=== PATIENT | female | born 1960 | race Caucasian/White ===

== ENCOUNTER 2020-12-09 06:25 | Day surgery (SDC) | payer BC ==
[2020-12-09] MEDS ORDERED: Dextrose 5%-Lactated Ringers 1,000 ML IV SCH (07:00)
[2020-12-09] MEDS ORDERED: Midazolam 1 MG/ML 2 ML SDV ONE (07:06)
[2020-12-09] MEDS ORDERED: fentaNYL 100 MCG/2 ML SDV ONE (07:06)
[2020-12-09] MEDS ORDERED: Propofol 200 MG/20 ML SDV ONE (07:07)
[2020-12-09 08:57] VITALS: BP 149/76; PULSE 83
--- NOTE | 2020-12-19 07:51 | OR ---
DATE OF PROCEDURE: 12/09/2020 SURGEON: Melvin Augustine MD PREOPERATIVE DIAGNOSIS: Personal history of colon polyps with family history of colon carcinoma. POSTOPERATIVE DIAGNOSIS: Normal colonoscopic examination with no recurrent polyps. OPERATIVE PROCEDURE: Flexible colonoscopy. ANESTHESIA: IV sedation. INDICATION FOR PROCEDURE: A 60-year-old female presenting for followup colonoscopy. She has both personal history of colon polyps as well a family history of her maternal grandfather having colon carcinoma. The plan is to proceed with a colonoscopy with biopsies and/or polypectomy as indicated. Potential risks including bleeding and perforation were discussed, and the patient wishes to proceed. DETAILS OF PROCEDURE: The patient was taken to the operating room, placed in a left lateral decubitus position. IV sedation was administered, after which the initial digital rectal exam was performed and was unremarkable. Colonoscope was then passed into the rectum, with retroflexion revealing uncomplicated hemorrhoidal columns. Scope was eventually passed to the level of the cecum. The prep was quite good with only small amount of liquid stool being present. To that level, no abnormalities were noted, specifically there were no areas of diverticulosis, no areas of colitis, and no polyps or other signs of neoplasia. Scope was then withdrawn, the above findings reconfirmed, and the procedure then concluded. Given the above history, patient should undergo a repeat colonoscopy in 5 years. Melvin Augustine MD /[id number]
== END 2020-12-09 09:07 | disposition home or self-care (01) ==
LOC: JP.SDS 06:25
PROVIDERS: ATTEND Surgery
DX: Z12.11 Encounter for screening for malignant neoplasm of colon (principal); Z80.0 Family history of malignant neoplasm of digestive organs; Z86.010 Personal history of colon polyps; K64.9 Unspecified hemorrhoids; K21.9 Gastro-esophageal reflux disease without esophagitis
CPT/HCPCS: 45378; J2250; J2704; J3010; J7121